=== PATIENT | female | born 1960 | race Caucasian/White ===

== ENCOUNTER 2018-07-27 11:56 | Inpatient (IN) ==
[2018-07-27] MEDS ORDERED: SODIUM CHLORIDE 0.9% 1,000 ML IV STA (12:25)
[2018-07-27] MEDS ORDERED: DILTIAZEM 25 MG/5 ML VIAL IV ONE (12:26)
[2018-07-27] MEDS ORDERED: DILTIAZEM 100 MG VIAL.ADD IV ONE (12:27)
[2018-07-27] MEDS ORDERED: SODIUM CHLORIDE 0.9% 100 ML IV ONE (12:28)
[2018-07-27] MEDS ORDERED: DILTIAZEM 50 MG/10 ML VIAL IV STA ×2 (12:32→12:37)
[2018-07-27] MEDS: DILTIAZEM INJ 100 MG in SODIUM CHLORIDE 0.9% 100 ML IV SCH ×2 (12:42→17:34)
[2018-07-27 13:07] LABS: Basophils # 0.1 10*3/uL (0.0-0.2); Basophils % 0.7 % (0.0-0.8); Eosinophils # 0.1 10*3/uL (0.0-0.87); Eosinophils % 0.6 % (0.00-10.9); Hematocrit 43.3 VOL% (35.7-47.0); Hemoglobin 14.8 GM/DL (12.0-16.0); Immature Granulocytes % 0.5 %; Immature Granulocytes Absolute 0.05 #; Lymphocytes # 1.2 10*3/uL (1.4-4.0); Lymphocytes % 11.8 % (21.3-54.2); Mean Corpuscular HGB Conc 34.2 GM/DL (32-36); Mean Corpuscular Hemoglobin 32 PG (27-34); Mean Corpuscular Volume 93.9 FL (87-102); Mean Platelet Volume 9.5 FL (9.6-12.0); Monocytes # 0.8 10*3/uL (0.11-0.8); Monocytes % 7.4 % (1.7-12.7); Neutrophils # 8.2 10*3/uL (1.4-7.4); Platelet Count 246 T/CUMM (130-400); Red Blood Count 4.61 MC/CUMM (3.8-5.5); Red Cell Distribution Width 12.8 % (9.3-17.3); White Blood Count 10.3 T/CUMM (4-12)
[2018-07-27 13:32] LABS: Blood Urea Nitrogen 18 MG/DL (7-18); Calcium 8.8 MG/DL (8.5-10.1); Glucose 77 MG/DL (74-106); Osmolality,Calculated 286.8 MOS/KG (273-304); Sodium 144 MMOL/L (136-145)
[2018-07-27 13:38] LABS: Troponin I 0.061 NG/ML (0.00-0.045)
[2018-07-27] MEDS ORDERED: ASPIRIN EC 325 MG TABLET PO STA (14:42)
[2018-07-27] MEDS ORDERED: ENOXAPARIN 40 MG/0.4 ML SYRINGE SUBCUT STA (14:42)
[2018-07-27] MEDS ORDERED: ONDANSETRON 4 MG/2 ML VIAL IV PRN (15:45)
[2018-07-27] MEDS ORDERED: ASPIRIN 325 MG TABLET PO STA (15:45)
[2018-07-27] MEDS ORDERED: PNEUMOCOCCAL VACCINE (13 VALENT) 0.5 ML SYRINGE IM ONE (17:00)
[2018-07-27] MEDS: SODIUM CHLORIDE 0.45% 1,000 ML IV SCH (17:35)
[2018-07-27] MEDS: METOPROLOL TARTRATE 25 MG TABLET PO SCH (18:54)
[2018-07-27] MEDS: ENOXAPARIN 60 MG/0.6 ML SYRINGE SUBCUT SCH (18:54)
[2018-07-27 19:44] LABS: PT Patient Result 10.7 SECS
[2018-07-27 19:58] LABS: Thyroid Stimulating Hormone 0.925 uIU/ml (0.358-3.74)
[2018-07-27 20:02] LABS: Troponin I 0.288 NG/ML (0.00-0.045)
[2018-07-28 01:08] LABS: Basophils # 0.1 10*3/uL (0.0-0.2); Basophils % 0.7 % (0.0-0.8); Eosinophils # 0.3 10*3/uL (0.0-0.87); Eosinophils % 2.8 % (0.00-10.9); Hematocrit 37.4 VOL% (35.7-47.0); Hemoglobin 12.6 GM/DL (12.0-16.0); Immature Granulocytes % 0.5 %; Immature Granulocytes Absolute 0.04 #; Lymphocytes # 3.6 10*3/uL (1.4-4.0); Lymphocytes % 41.3 % (21.3-54.2); Mean Corpuscular HGB Conc 33.7 GM/DL (32-36); Mean Corpuscular Hemoglobin 32 PG (27-34); Mean Corpuscular Volume 94.2 FL (87-102); Mean Platelet Volume 10.5 FL (9.6-12.0); Monocytes # 0.7 10*3/uL (0.11-0.8); Monocytes % 7.8 % (1.7-12.7); Neutrophils # 4.1 10*3/uL (1.4-7.4); Neutrophils % 46.9 % (38.7-73.9); Platelet Count 211 T/CUMM (130-400); Red Blood Count 3.97 MC/CUMM (3.8-5.5); Red Cell Distribution Width 12.9 % (9.3-17.3); White Blood Count 8.8 T/CUMM (4-12)
[2018-07-28 01:25] LABS: Troponin I 0.222 NG/ML (0.00-0.045)
[2018-07-28] MEDS: SODIUM CHLORIDE 0.45% 1,000 ML IV SCH ×2 (01:35→09:17)
[2018-07-28 01:36] LABS: Calcium 8.1 MG/DL (8.5-10.1); Osmolality,Calculated 283.1 MOS/KG (273-304); Potassium 3.6 MMOL/L (3.5-5.1); Risk Ratio 2.13; VLDL CHOLESTEROL 23.2 MG/DL
[2018-07-28] MEDS: METOPROLOL TARTRATE 25 MG TABLET PO SCH ×2 (01:57→05:40)
[2018-07-28] MEDS: ENOXAPARIN 60 MG/0.6 ML SYRINGE SUBCUT SCH ×2 (08:02→20:50)
[2018-07-28] MEDS: PANTOPRAZOLE 40 MG TABLET PO SCH (08:02)
[2018-07-28] MEDS ORDERED: MAGNESIUM SULF RIDER 2 GM in PREMIX 1 EACH IV PRN (08:23)
[2018-07-28] MEDS ORDERED: POTASSIUM CHLORIDE RIDER 10 MEQ in PREMIX 1 EACH IV PRN (08:23)
[2018-07-28] MEDS ORDERED: DIAZEPAM 5 MG TABLET PO ONE (08:33)
[2018-07-28] MEDS ORDERED: diphenhydrAMINE CAP 25 MG CAPSULE PO ONE (08:33)
[2018-07-28] MEDS: METOPROLOL TARTRATE 50 MG TABLET PO SCH ×2 (09:05→20:50)
[2018-07-28 13:22] LABS: Apearance,Urine CLOUDY (Clear); Bilirubin,Urine Negative (Negative); Blood, Urine Negative (Negative); Glucose,Urine (UA) Negative (Negative); Ketones,Urine Negative (Negative); Mucus,Urine Occasional /LPF (Occasional); Nitrite,Urine Negative (Negative); Protein,Urine Negative; RBC,Urine 4 /HPF (0-4); Squamous Epithelial Cell,Urine Many /HPF (0-10); Urine Color Yellow (Yellow); Urine Specific Gravity 1.013 (1.001-1.035); Urine Urobilinogen < 2.0 EU/DL (0.2-1.0); WBC,Urine 10 /HPF (0-6)
[2018-07-28 13:48] LABS: Barbiturates Screen,Urine Negative (Negative); Benzodiazepines Screen,Urine Negative (Negative); Cannabinoid Screen,Urine Negative (Negative); Opiate Screen,Urine Negative (Negative); Phencyclidine Screen,Urine Negative (Negative)
[2018-07-29 03:44] LABS: Basophils # 0.1 10*3/uL (0.0-0.2); Basophils % 0.7 % (0.0-0.8); Eosinophils # 0.3 10*3/uL (0.0-0.87); Eosinophils % 2.9 % (0.00-10.9); Hematocrit 40.4 VOL% (35.7-47.0); Hemoglobin 13.9 GM/DL (12.0-16.0); Immature Granulocytes % 0.2 %; Immature Granulocytes Absolute 0.02 #; Lymphocytes # 2.8 10*3/uL (1.4-4.0); Lymphocytes % 30.4 % (21.3-54.2); Mean Corpuscular HGB Conc 34.4 GM/DL (32-36); Mean Corpuscular Hemoglobin 32 PG (27-34); Mean Platelet Volume 10.5 FL (9.6-12.0); Monocytes # 0.6 10*3/uL (0.11-0.8); Monocytes % 6.8 % (1.7-12.7); Neutrophils # 5.4 10*3/uL (1.4-7.4); Platelet Count 222 T/CUMM (130-400); Red Cell Distribution Width 12.8 % (9.3-17.3); White Blood Count 9.2 T/CUMM (4-12)
[2018-07-29 03:50] LABS: Total Cells Counted 0
[2018-07-29] MEDS ORDERED: SODIUM CHLORIDE 0.9% 1,000 ML IV SCH (04:00)
[2018-07-29 04:04] LABS: Calcium 8.4 MG/DL (8.5-10.1); Osmolality,Calculated 286.8 MOS/KG (273-304); Potassium 3.8 MMOL/L (3.5-5.1)
[2018-07-29] MEDS ORDERED: diphenhydrAMINE CAP 25 MG CAPSULE PO ONE (08:00)
[2018-07-29] MEDS ORDERED: DIAZEPAM 5 MG TABLET PO ONE (08:00)
[2018-07-29] MEDS ORDERED: fentaNYL 100 MCG/2 ML VIAL ONE (08:38)
[2018-07-29] MEDS ORDERED: MIDAZOLAM 2 MG/2 ML VIAL ONE (08:38)
[2018-07-29] MEDS ORDERED: NITROGLYCERIN DRIP 50 MG/250 ML BOTTLE IV ONE (08:38)
[2018-07-29] MEDS ORDERED: VERAPAMIL 5 MG/2 ML VIAL ONE (08:38)
[2018-07-29] MEDS ORDERED: LIDOCAINE 1% 20 ML VIAL ONE (08:39)
[2018-07-29] MEDS ORDERED: HEPARIN/NACL 0.9% 2 UNITS/ML 1,000 ML IV ONE (08:39)
[2018-07-29] MEDS: PANTOPRAZOLE 40 MG TABLET PO SCH (09:41)
[2018-07-29] MEDS: METOPROLOL TARTRATE 50 MG TABLET PO SCH (09:42)
[2018-07-29 15:25] VITALS: BP 150/90
[2018-07-30] MEDS ORDERED: ASCORBIC ACID 500 MG TABLET PO SCH (09:00)
[2018-07-30] MEDS ORDERED: LOSARTAN 25 MG TABLET PO SCH (09:00)
[2018-07-30] MEDS ORDERED: APIXABAN 2.5 MG TABLET PO SCH (09:00)
== END 2018-07-29 16:50 | disposition home or self-care (01) | DRG 282 ==
LOC: EDBD → EDUNIT# → N.ED 11:56 → N.EDINP 15:44 → N.TELES 16:00
PROVIDERS: ADMIT Internal Medicine Cardiovascular Disease; ATTEND Internal Medicine Cardiovascular Disease
PROC: CLCCHCL (ICD-10-PCS; 2018-07-29 08:45)